=== PATIENT | male | born 1985 | race Caucasian/White ===

== ENCOUNTER 2018-02-23 06:04 | Emergency (ER) | payer OTHER ==
[~2018-02-23 06:04] MED LIST: IBUPROFEN800 MG PO; NAPROSYN500 M1 PO; ORPHENADRINE C100 MG PO; TAMIFLU 75MG75 MG PO
--- NOTE | 2018-02-23 06:30 | ED GENERAL ADULT ---
History of Present Illness General Chief Complaint: Skin Rash/ Abcess Stated Complaint: " I HAVE THREE CYSTS THAT NEED TO BE DRAINED" Source: patient Exam Limitations: no limitations Vital Signs & Intake/Output Vital Signs & Intake/Output Vital Signs Date Time Temp Pulse Resp B/P B/P Pulse O2 O2 Flow FiO2 Mean Ox Delivery Rate 02/23 0648 100 Room Air 02/23 0646 98.5 74 18 115/75 96 Room Air Allergies Coded Allergies: Penicillins (UNKNOWN 02/23/18) Reconcile Medications Ibuprofen 800 MG TAB 1 TAB PO 4 TIMES/DAY PRN PAIN/FEVER Naproxen (Naprosyn) 500 MG TABLET 1 TAB PO BID PAIN Orphenadrine Citrate 100 MG TABLET.ER 1 TAB PO BID PRN MUSCLE PAIN/SPASMS Oseltamivir Phosphate (Tamiflu 75MG) 75 MG CAP 1 CAP PO BID influenza Triage Nurses Notes Reviewed? yes HPI: Mr Nelson is a 32 y/o male presents with 1 week of scrotal pain and rash. Seen by PCP 5 days ago for scrotal folliculitis and pustules and started on bactrim. Associated symptoms of difficulty walking due to the pain. Has popped multiple abscesses. Started using hydrocortisone cream after which the skin complications got much worse. Past History Travel History Traveled to [place] past 21 day No Medical History Any Pertinent Medical History? 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 No Review of Systems Review of Systems Constitutional: Reports: no symptoms, see HPI. EENTM: Reports: no symptoms. Respiratory: Reports: no symptoms. Cardiovascular: Reports: no symptoms. GI: Reports: no symptoms. Genitourinary: Reports: no symptoms. Musculoskeletal: Reports: no symptoms. Skin: Reports: no symptoms. Neurological/Psychological: Reports: no symptoms. Hematologic/Endocrine: Reports: no symptoms. Immunologic/Allergic: Reports: no symptoms. All Other Systems: Reviewed and Negative Physical Exam Physical Exam General Appearance: no apparent distress, uncomfortable Comments: Gen.: Well-nourished, well-developed, no acute respiratory distress. Head: Normocephalic, atraumatic. Eyes: Normal inspection bilaterally Ears: Normal inspection bilaterally Nose: Normal inspection Throat/mouth : Moist mucosa Neck: Supple, full range of motion, no goiter Heart: Regular rate and rhythm, no murmurs rubs or gallops Lungs: Clear to auscultation bilaterally with normal air entry Chest: Nontender Back: Normal range of motion Abdomen: Soft, nontender, nondistended, normal bowel sounds Extremities: Normal range of motion grossly, equal radial pulses, no cyanosis clubbing or edema Neurologic: Cranial nerves grossly intact, speech is clear Skin: Multiple pustules located on the scrotum and skin creases of the perineum and upper thigh. Psychiatric: Calm, cooperative, no apparent delusions or hallucinations Core Measures ACS in differential dx? No CVA/TIA Diagnosis: No Sepsis Present: No Sepsis Focused Exam Completed? No Progress Differential Diagnoses I considered the following diagnoses in my evaluation of the patient: Scrotal abscess versus Mervin's gangrene Plan of Care: Laboratory and imaging not indicated this time. Initial ED EKG: none Comments: Spoke with patient at length with standing from using steroid-based creams due to their ability to exacerbate the situation. Patient is also follow-up with his urologist for further evaluation and treatment. Continue taking Bactrim. Return precautions given. Patient demonstrated understanding great care plan. Departure Departure Disposition: HOME OR SELF CARE Condition: Stable Clinical Impression Primary Impression: Acute folliculitis Secondary Impressions: Abscess, scrotum Referrals: Jose Juan PADGETT,Fredis Daugherty (PCP/Family) Carlos Alberto Kasper MD Additional Instructions: Continue Bactrim. Stop using hydrocortisone-based creams. Departure Forms: Customer Survey General Discharge Information Comments Please note that there might be incidental findings in your evaluation that are unrelated to the current emergency department visit. Please notify your primary care doctor about this emergency department visit in order to obtain and review all of the testing performed so that these incidental findings can be monitored as needed. If you had an x-ray performed, please understand that some fractures may not be seen on the initial set of x-rays. If your symptoms persist you might need a repeat set of x-rays to check for such a fracture. If you had a laceration evaluated, please understand that foreign bodies such as glass or wood may not be visible to the naked eye or on plain x-rays. If the wound becomes red, swollen, increasingly more painful or if there is any drainage from the wound, please have it reevaluated by a physician for the possibility of a retained foreign body. If you're unable to follow up as outlined in the discharge instructions please return to the emergency department. Critical Care Note Critical Care Note Critical Care Time: non-applicable
[2018-02-23 06:46] VITALS: BP 115/75
== END 2018-02-23 06:49 ==
LOC: ERH 06:04
DX: L73.9 Follicular disorder, unspecified (principal); N49.2 Inflammatory disorders of scrotum
CPT/HCPCS: 99282